=== PATIENT | female | born 1995 | race African-American/Black ===

== ENCOUNTER 2016-08-08 22:22 | Emergency (ER) | payer SELFPAY ==
[~2016-08-08] VITALS: Ht 160 cm; Wt 82.0 kg
[2016-08-08 23:14] VITALS: BP 148/89
== END 2016-08-09 04:33 | disposition left against medical advice (07) ==
LOC: ER 08-09 04:26
DX: Z53.21 Procedure and treatment not carried out due to patient leaving prior to being seen by health care provider (principal)

== ENCOUNTER 2019-06-05 20:48 | Emergency (ER) | payer SELFPAY ==
[~2019-06-05] VITALS: Ht 160 cm; Wt 55.0 kg
[2019-06-05 23:44] VITALS: BP 132/57
== END 2019-06-05 23:45 | disposition home or self-care (01) ==
LOC: ER 20:48
DX: Z20.828 Contact with and (suspected) exposure to other viral communicable diseases (principal); J06.9 Acute upper respiratory infection, unspecified; M94.0 Chondrocostal junction syndrome [Tietze]; R09.89 Other specified symptoms and signs involving the circulatory and respiratory systems; R51 Headache
CPT/HCPCS: 71045; 87635; 99284

== ENCOUNTER 2019-06-20 12:05 | Emergency (ER) | payer SELFPAY ==
[~2019-06-20] VITALS: Ht 157.5 cm; Wt 50.0 kg
[2019-06-20 13:22] VITALS: BP 110/70
== END 2019-06-20 13:24 | disposition home or self-care (01) ==
LOC: ER 12:05
DX: Z09 Encounter for follow-up examination after completed treatment for conditions other than malignant neoplasm (principal); Z86.19 Personal history of other infectious and parasitic diseases
CPT/HCPCS: 99281